=== PATIENT | female | born 1955 | race Two or more races ===

== ENCOUNTER 2022-12-23 11:04 | Outpatient (CLI) | payer OTHER | END 2022-12-23 11:12 | disposition home or self-care (01) | LOC: EDBD 11:04 → TOM 11:04 | PROVIDERS: ATTEND Internal Medicine Pulmonary Disease | DX: J84.112 Idiopathic pulmonary fibrosis (principal) ==

== ENCOUNTER 2023-05-13 12:02 | Outpatient (CLI) | payer OTHER | END 2023-05-13 12:07 | disposition home or self-care (01) | LOC: RAD 12:02 | PROVIDERS: ATTEND Orthopaedic Surgery | DX: M25.561 Pain in right knee (principal); M25.562 Pain in left knee; M25.552 Pain in left hip ==

== ENCOUNTER 2023-05-20 10:13 | Outpatient (CLI) | payer OTHER | END 2023-05-20 10:21 | disposition home or self-care (01) | LOC: TOM 10:13 | PROVIDERS: ATTEND Internal Medicine Pulmonary Disease | DX: I67.2 Cerebral atherosclerosis (principal); J84.112 Idiopathic pulmonary fibrosis; Z96.653 Presence of artificial knee joint, bilateral; M51.37 Other intervertebral disc degeneration, lumbosacral region | CPT/HCPCS: 70496; 70498; 71250; 72100; 73565; Q9965 ==